=== PATIENT | female | born 1990 | race Caucasian/White ===

== ENCOUNTER 2016-06-22 12:14 | Emergency (ER) | payer OTHER ==
[2016-06-22 12:19] VITALS: BP 149/96; PULSE 88; RESP 18; TEMP 98.1; O2SAT 96
--- NOTE | 2016-06-22 12:45 | EDPHY ---
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 This happened here in [place] when she was bit by dog this morning. This is on the volar aspect of the left index finger. This happened within the past 30 minutes. She quickly irrigated and scrubbed the wound with a surgical scrub there at the key maker. 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 [id number] pain. No flexor deficits. No neuro deficits. Pain is worse with palpation. Nearly resolved at rest. No other associated complaints or modifying factors. she is not certain if the dog is up- to-date on his vaccinations but they are working on this at this time. TIME OF INJURY: Within 30 minutes TETANUS STATUS: current less than 2-3 years REVIEW OF SYSTEMS: Ten systems reviewed and are negative unless otherwise noted in the HPI EXAMINATION General Appearance: Alert, no distress Cardiovascular: Pulses normal throughout. symmetric radial pulses 2+.Brisk cap refill Neurological: A&O, sensory symmetric, strength symmetric . Two-point sensation intact Skin: Warm and dry, no rash. Superficial laceration over the left index finger over the middle phalanx. This is oblique. There is no distraction of the wound margins. No foreign body. No bleeding. No surrounding abrasions or erythema. Extremities: Mild tenderness to palpation over the left index finger in the area of the laceration. Range of motion fully intact including flexion with the superficialis and profundus. Neurovascular intact distal to the injury. Psychiatric: Mood and affect normal DIFFERENTIAL DIAGNOSES: Including but not limited to Dog bite, laceration, superficial laceration MDM: 12:40 p.m. dog bite to the left finger. There is no indication for closure as the wound is not distracted, the wound is superficial. It has been irrigated. She has declined digital block. I will provide a prescription of Augmentin for her. She should follow up on the vaccination status of the dog regarding the possibility of needing a rabies post exposure prophylaxis. She will be discharged home with the prescription and instructions to do so. Follow-up here for worsening symptoms or signs of infection as discussed. Patient is comfortable with this plan and discharged home in stable condition. ED Precautions: Worsening pain. Erythema, edema, cyanosis, pallor, paresthesia or anesthesia. SUPERVISION: This patient was independently evaluated without the aide of supervising physician. (Naseem Javier) Medical Decision Making: I did not see this patient while she was in the emergency department. However her care was discussed with the PA while the patient was in the department. I agree with treatment plan and management (Bryn Alberto) - Objective Vital Signs: Initial Vital Signs Temperature (C) 36.7 C 06/22/16 12:16 Heart Rate 88 06/22/16 12:16 Respiratory Rate 18 06/22/16 12:16 Blood Pressure 149/96 H 06/22/16 12:16 O2 Sat (%) 96 06/22/16 12:16 O2 Delivery Mode Room Air Allergies/Adverse Reactions: No Known Allergies Allergy (Unverified 06/22/16 12:19) Home Medications: Medication Instructions Recorded Amoxicillin/Clavulanate Pot 875 mg PO BID #20 tab 06/22/16 [Augmentin 875 MG TAB (*)] Departure - Departure Disposition: Home, Routine, Self-Care Clinical Impression: Dog bite of finger Condition: Good Instructions: Animal Bite (ED), Rabies (ED), Rabies Vaccine (ED) Additional Instructions: Follow up with hand surgeon as needed. Determine the vaccination status of the dog and follow up with the [facility] should she need post exposure prophylaxis for rabies. Referrals: NONE *PRIMARY CARE P,. [Primary Care Provider] - As per Instructions Pancho Roca MD [Medical Doctor] - As per Instructions Prescriptions: Amoxicillin/Clavulanate Pot [Augmentin 875 MG TAB (*)] 875 mg PO BID #20 tab
== END 2016-06-22 13:07 | disposition home or self-care (01) ==
DX: S61.251A Open bite of left index finger without damage to nail, initial encounter (principal); Z87.891 Personal history of nicotine dependence; W54.0XXA Bitten by dog, initial encounter; Y92.219 Unspecified school as the place of occurrence of the external cause; Y99.0 Civilian activity done for income or pay; Y93.89 Activity, other specified

== ENCOUNTER → 2018-05-10 | Outpatient (CLI) | payer OTHER | LOC: FIMAGING 11:04 | PROVIDERS: ATTEND Advanced Practice Midwife | DX: Z34.02 Encounter for supervision of normal first pregnancy, second trimester (principal); Z3A.25 25 weeks gestation of pregnancy ==